=== PATIENT | female | born 1950 ===

== ENCOUNTER 2017-06-11 17:38 | Inpatient (IN) ==
[~2017-06-11 17:38] MED LIST: LORATADINE 10 MG TABLET PO PRN
[2017-06-11] MEDS ORDERED: HALOPERIDOL 5 MG/ML INJECTION IM PRN (18:32)
[2017-06-11] MEDS ORDERED: HALOPERIDOL 0.5 MG TABLET PO PRN (18:32)
[2017-06-11 19:47] VITALS: BMI 26.1
[2017-06-11] MEDS: LORazepam 0.5 MG TABLET PO PRN (20:38)
--- NOTE | 2017-06-11 21:19 | 24 Hour Neuropsychiatic Eval ---
Date of Admission: 06/11/17 17:38 Chief complaint: Confusion History of Present Illness: Patient is 66-year-old, , female who lives with at [facility] in [place] who has history of Major Neurocognitive disorder Alzheimer type. Patient was said to have been more delusional, paranoid and has also been agitated. She was said to have been agitated because she feels like has been having an affair. Patient reportedly attempted to escape several times and when family tried to stop her she began throwing things in the house. Family reportedly does not feel safe to have her around in the apartment due to agitation. Patient was seen to be alert and disoriented to time and place. She was seen to be confused and unable to state why she is in the hospital. Past Medical Hx: record indicates history of GERD Past Surgical History: Cholecystectomy Past Psychiatry history: Unable to obtain due to confusion Patient's strength; Patient has supportive family and she is able to assist in her own care Psychosis: Hallucinations/Illusions, Delusions, Disorganized behavior Dementia: Memory Impairment, Poor Executive Functioning PFSH GERD Family History: Unable to obtain - Social History Smoking status: Unknown if ever smoked Substance use type: does not use Current residence: [facility] Review of Systems - Constitutional Constitutional: Absent: headache(s) - EENMT Eyes: Absent: change in vision Ears: Absent: ear pain Mouth/Throat: Absent: changes in swallowing - Cardiovascular Cardiovascular: Absent: chest pain, orthopnea Rhythm: Present: regular rhythm - Respiratory Respiratory: Absent: cough, dyspnea on exertion - Gastrointestinal Gastrointestinal: Absent: dyspepsia - Genitourinary Genitourinary: Absent: dysuria - Musculoskeletal Musculoskeletal: Absent: neck pain - Neurological Neurological: Present: confusion. Absent: numbness - Psychiatric Psychiatric: Present: auditory hallucinations, difficulty concentrating, paranoia. Absent: suicidal ideation - Endocrine Endocrine: Absent: palpitations - Hematologic/Lymphatic Hematologic/Lymphatic: Absent: lymphadenopathy - Allergic/Immunologic Allergic/Immunologic: Absent: urticaria Mental Status Exam Vitals: Last Vital Signs Temp 96.6 F L 06/11/17 20:10 Pulse 58 L 06/11/17 20:10 Resp 18 06/11/17 20:10 BP 148/72 H 06/11/17 20:10 Pulse Ox 97 06/11/17 20:10 Height: 1.75 m Weight: 80.2 kg - Mental Status Exam Muscle Strength/Tone: Weak Dressing: Casual Grooming: Good Attitude: Cooperative Motor Activity: Agitation Eye Contact: Good Speech: Other (incoherent) Rhythm: Appropriate Rhythm Orientation: Disoriented to time, Disoriented to place, Oriented to person Mood: Neutral Affect: Anxious Rate of Thoughts: Appropriate Rate Thought Organization: Disorganized, Tangential, Confused Associations: Loose-associations, Illogical Abstract Reasoning: Impaired, concrete Computation: Poor Computation Thought Content: Delusions Perception/Psychotic: Psychotic Current Hallucinations: Auditory Language: Naming Impaired Fund of Knowledge: Poor fund of knowledge Memory: Poor-immediate, Poor-recent, Poor-remote Suicidal Ideation: None Homicidal Ideation: None Insight: Poor Judgement: Poor Impulse Control: Poor Assessment and Plan (1) Major neurocognitive disorder Problem details: with behavioral disturbance Current visit: Yes Status: Acute Admit to [facility] unit Consult medical team for medical management Re- start home medication Obtain Vit B12, Folate, TSH
[2017-06-12] MEDS ORDERED: CRANBERRY FRUIT 500 MG PO SCH (09:00)
[2017-06-12] MEDS ORDERED: BERBERINE PO SCH (09:00)
[2017-06-12] MEDS ORDERED: HOPS PO SCH (09:00)
[2017-06-12] MEDS ORDERED: VIT D3 VIT K PO SCH (09:00)
[2017-06-12] MEDS ORDERED: FLAXSEED OIL 1000 MG PO SCH (09:00)
[2017-06-12] MEDS: CALCIUM 600 + VIT D 400 TABLET PO SCH ×2 (09:17→20:12)
[2017-06-12] MEDS: FENOFIBRATE 145 MG TABLET PO SCH (09:18)
[2017-06-12] MEDS: VITAMIN E 400 UNIT CAPSULE PO SCH (09:18)
[2017-06-12] MEDS: LEVOTHYROXINE 112 MCG TABLET PO SCH (09:18)
[2017-06-12] MEDS: OMEPRAZOLE 20 MG CAPSULE PO SCH (09:18)
[2017-06-12] MEDS: MULTI-VITAMIN PLAIN TABLET PO SCH (09:18)
[2017-06-12] MEDS ORDERED: LORATADINE 10 MG TABLET PO PRN (09:30)
--- NOTE | 2017-06-12 09:38 | History & Physical Report ---
<Riddhi Mendoza V - Last Filed: 06/12/17 09:35> History of Present Illness Date: 06/12/17 Chief complaint: dementia with behaviors HPI: Patient is a 66-year-old female who resides at [facility] in [place]. She had been seen by her primary care provider, Dr. Jelani Perry on continued memory deficits. No changes were apparently made at that time. Over the last week. She has had increasing agitation, increased delusions. She had been accusing her of having an affair and attempting to elope from the home where she resides with her . She was evaluated at [facility] on 06/11 in the emergency room for medical clearance. Then she was she was accepted to the [facility] unit for ongoing psychiatric evaluation and treatment Khushbu is seen this morning for initial consultation. She is alert, and pleasant during exam. She denies having pain, shortness of breath or GI complaints. She is not a very good historian as she is unable to give any specifics about living situation or history. Review of Systems ROS unobtainable: due to mental status All systems: reviewed and no additional remarkable complaints except as stated Review of systems: Unable to obtain accurate ROS due to mentation PFSH History of CVA Dementia Hypertension GERD Hypercholesterolemia hypothyroidism. Obstructive sleep apnea Genital herpes Cervical herniated disc Urinary incontinence History of vitamin D deficiency History of intracranial bleed-2010 history of migraines. Surgical History: Cataract extraction. Cholecystectomy-1994. Sinus and nasal surgery-1989. Tubal ligation-1981 Family History: Mother-CVA and heart disease. Father and brother with leukemia. Sister with lupus - Social History Smoking status: Unknown if ever smoked Current residence: [facility] Living Social history: PCP Dr. Jelani Perry Medications Home Medications Medication Instructions Recorded Confirmed Type Calcium 600 + D [Caltrate + D] 600 mg PO BID 06/11/17 06/11/17 History Cranberry Fruit 500 mg PO DAILY 06/11/17 06/11/17 History Esomeprazole [NEXIUM 20 mg Capsule] 20 mg PO ACB 06/11/17 06/11/17 History Fenofibrate [Tricor] 1 tab PO WB 06/11/17 06/11/17 History Flaxseed Oil 1,000 mg PO DAILY 06/11/17 06/11/17 History Levothyroxine Sodium 112 mcg PO ACB 06/11/17 06/11/17 History Loratadine [Claritin] 10 mg PO PRN 06/11/17 06/11/17 History Multivitamin [Multivitamins] 1 each PO DAILY 06/11/17 06/11/17 History Pravachol 40 mg PO HS 06/11/17 06/11/17 History Vit D3-Vit K/Berberine/Hops 1,000 cap PO DAILY 06/11/17 06/11/17 History Vitamin E 400 mg PO DAILY 06/11/17 06/11/17 History Allergies Allergy/AdvReac Type Severity Reaction Status Date / Time atorvastatin Allergy Hives Verified 06/11/17 19:11 Penicillins Allergy Hives Verified 06/11/17 19:11 Sulfa (Sulfonamide Allergy Verified 06/11/17 19:11 Antibiotics) Exam Vital Signs: Temperature 97.2 F 06/12/17 09:00 Pulse Rate 75 06/12/17 09:00 Respiratory Rate 16 06/12/17 09:00 Blood Pressure 129/94 H 06/12/17 09:00 Pulse Oximetry 96 06/12/17 09:00 Oxygen Delivery Method Room Air Height: 1.75 m Weight: 80.2 kg Body Mass Index: 26.1 - Constitutional Present: no acute distress, well nourished, well developed - Routine HEENT Exam Head: Present: normocephalic, atraumatic Eye: Present: EOMI, PERRL ENT: Present: mucous membranes moist, dentition normal - Routine Neck Exam Present: supple, full ROM - Routine Respiratory Exam Present: CTA bilaterally. Absent: wheezes - Routine Cardiovascular Exam Present: RRR, S1, S2, no murmur. Absent: murmur - Routine Abdominal Exam Present: soft, normoactive bowel sounds, non distended. Absent: tenderness - Routine Extremities Exam Present: full ROM, normal capillary refill - Routine Back/Spine/Pelvis Exam Back/Spine: Present: full ROM - Routine Skin Exam Present: intact, dry, warm - Routine Neurological Exam Present: alert, CN II-XII intact, moving all extremities - Routine Psychiatric Exam Present: cooperative Assessment and Plan (1) Major neurocognitive disorder Problem details: with behavioral disturbance Current visit: Yes Status: Acute Resuscitation Status: Full Code Assessment and Plan: A/P Dementia with increase behaviors Hypertension Hypercholesterolemia neck and hypothyroidism. History of intracranial hemorrhage GERD Urinary incontinence-chronic History of CVA Plan Agree with admission to [facility] unit under the care of Dr. Edgar Medical clearance was preformed at [facility] yesterday 06/11 Will continue to monitor blood pressures. She does not appear to be on any anti- hypertensives Continue with other chronic medications including Tricor, Levothyroxine and routine vitamins Encourage patient to participate in unit activities and provide a safe environment The hospitalist services will follow patient and continue to medical managemet Mrs Ruby during her stay on [facility] unit At time of discharge medical care will return to PCP Dr Jelani Perry in [place]. Sepsis Assessment - Evaluation Sepsis screening result: No Definite Risk Hospital Course Summary Disclaimer: The visit summary below is not to be considered part of the above Progress Note. <Phuong Vallecillo - Last Filed: 06/12/17 21:07> History of Present Illness Date: 06/12/17 [facility] Patient Stated Medical History Alzheimer's Disease Yes Dementia Yes Hypertension Yes Other Respiratory Yes: Allergic Rhinitis Gastroesophageal Reflux Yes Disease Hx Incontinence Yes Hx Urinary Tract Infection Yes Exam Vital Signs: Temperature 96.7 F L 06/12/17 19:53 Pulse Rate 66 06/12/17 19:53 Respiratory Rate 16 06/12/17 19:53 Blood Pressure 125/78 06/12/17 19:53 Pulse Oximetry 94 06/12/17 19:53 Oxygen Delivery Method Room Air Height: 1.75 m Weight: 80.2 kg Assessment and Plan (1) Major neurocognitive disorder Problem details: with behavioral disturbance Current visit: Yes Status: Acute Assessment and Plan: I have independently evaluated and examined this patient. I reviewed the chart, the patient's history, and the TATTOO AND BODY ARTIST/PA's documented findings as above. We discussed and formulated the assessment and plan as above with additions as below: Mrs. Ruby was pleasant when seen and reported no concerns. Increased agitation/ psychosis noted per transfer records. The patient denies any acute symptoms currently. She currently lives in a group home facility in [place]. The patient was alert and cooperative when evaluated but is moderately confused and had word searching present. Respirations nonlabored with good airflow. Cardiac rhythm regular. Cranial nerves III through XII intact, motor tone normal, no tremor present. Sensation intact to light touch/cold upper and lower extremities, clinic director 4/5 bilaterally no overt drift although patient has difficulty following directions to evaluate, raise his legs off the floor independently and holds up against gentle resistance, plantar flexion 4/5 bilaterally. Laboratory data from [place] [facility] reviewed-white count 6.2, hemoglobin 14.1, platelet count 183K, and differential normal. Urinalysis unremarkable, electrolytes/liver enzymes normal, creatinine 0.66, TSH 3.53. Medically stable at present, underlying dementia with psychosis present. Plans as above. Hospital Course Summary Disclaimer: The visit summary below is not to be considered part of the above Progress Note.
[2017-06-12] MEDS: PRAVASTATIN 40 MG TABLET PO SCH (20:12)
[2017-06-12] MEDS: RisperiDONE 0.5 MG TABLET PO SCH (20:12)
--- NOTE | 2017-06-12 20:48 | Neuropsych Progress Note ---
[facility] Subjective Date: 06/12/17 - Sujective/Severity of Illness Medications: Calcium/Vitamin D (Caltrate + D) 1 tab PO BID [facility] Last Admin: 06/12/17 20:12 Dose: 1 tab Fenofibrate (Tricor) 145 mg PO WB [facility] Last Admin: 06/12/17 09:18 Dose: 145 mg Haloperidol (Haldol) 0.5 mg PO Q6H PRN PRN Reason: Extreme agitation Last Admin: 06/11/17 20:38 Dose: 0.5 mg Haloperidol Lactate (Haldol) 0.5 mg IM Q6H PRN PRN Reason: Extreme agitation Levothyroxine Sodium (Synthroid) 112 mcg PO ACB [facility] Last Admin: 06/12/17 09:18 Dose: 112 mcg Loratadine (Claritin) 10 mg PO ACB PRN Lorazepam (Ativan Inj) 0.5 mg IM Q6H PRN PRN Reason: Extreme agitation Lorazepam (Ativan) 0.5 mg PO Q6H PRN PRN Reason: Extreme agitation Last Admin: 06/11/17 20:38 Dose: 0.5 mg Multivitamins (Theragran) 1 tab PO DAILY [facility] Last Admin: 06/12/17 09:18 Dose: 1 tab Omeprazole (Prilosec) 20 mg PO ACB [facility] Last Admin: 06/12/17 09:18 Dose: 20 mg Pravastatin Sodium (Pravachol) 40 mg PO HS [facility] Last Admin: 06/12/17 20:12 Dose: 40 mg Risperidone (Risperdal) 0.5 mg PO 2100 [facility] Last Admin: 06/12/17 20:12 Dose: 0.5 mg Vitamin E (Vitamin E) 400 unit PO DAILY [facility] Last Admin: 06/12/17 09:18 Dose: 400 unit Subjective: History :Patient presented from an [facility] where she resides with her . She has history of Alzheimer dementia diagnosed several years ago. She was said to be agitated, delusional and paranoid. She was accusing her of having an affair. Today ,she was seen to be alert and oriented to person. She often engages in conversation and confabulates by been amiable. She has significant impaired memory, poor executive function, difficulty sustaining attention and gait instability. Staff reports that she often gets agitated on the evening and was attempting to leave the unit last night. She required PRN Haldol and Ativan at about 2009. Sleep: 9 hours appetite: good Medication compliance good: side effect: none identified Group activity: She is unable to meaningfully participate due to impaired cognition Start Time: 17:20 Stop Time: 17:40 Mental Status Exam Vitals: Last Vital Signs Temp 96.7 F L 06/12/17 19:53 Pulse 66 06/12/17 19:53 Resp 16 06/12/17 19:53 BP 125/78 06/12/17 19:53 Pulse Ox 94 06/12/17 19:53 Height: 1.75 m Weight: 80.2 kg - Mental Status Exam Muscle Strength/Tone: Weak Dressing: Casual Grooming: Good Attitude: Cooperative Motor Activity: Agitation (towards evening ) Eye Contact: Good Speech: Other (incoherent) Rhythm: Appropriate Rhythm Orientation: Disoriented to time, Disoriented to place, Oriented to person Mood: Neutral Affect: Bright Rate of Thoughts: Appropriate Rate Thought Organization: Disorganized, Tangential, Confused Associations: Loose-associations, Illogical Abstract Reasoning: Impaired, concrete Computation: Poor Computation Thought Content: Delusions Perception/Psychotic: Psychotic Current Hallucinations: Auditory Language: Naming Impaired Fund of Knowledge: Poor fund of knowledge Memory: Poor-immediate, Poor-recent, Poor-remote Suicidal Ideation: None Homicidal Ideation: None Insight: Poor Judgement: Poor Impulse Control: Poor Assessment and Plan (1) Major neurocognitive disorder Problem details: with behavioral disturbance Current visit: Yes Status: Acute Hospital Course Summary Disclaimer: The visit summary below is not to be considered part of the above Progress Note. Start Risperidone 0.5mg po q PM to target peak of psychotic behavioral disturbance.
[2017-06-13] MEDS: OMEPRAZOLE 20 MG CAPSULE PO SCH (09:46)
[2017-06-13] MEDS: VITAMIN E 400 UNIT CAPSULE PO SCH (09:47)
[2017-06-13] MEDS: FENOFIBRATE 145 MG TABLET PO SCH (09:47)
[2017-06-13] MEDS: MULTI-VITAMIN PLAIN TABLET PO SCH (09:47)
[2017-06-13] MEDS: LEVOTHYROXINE 112 MCG TABLET PO SCH (09:47)
[2017-06-13] MEDS: CALCIUM 600 + VIT D 400 TABLET PO SCH ×2 (09:47→20:16)
--- NOTE | 2017-06-13 19:10 | Neuropsych Progress Note ---
[facility] Subjective Date: 06/13/17 - Sujective/Severity of Illness Medications: Calcium/Vitamin D (Caltrate + D) 1 tab PO BID [facility] Last Admin: 06/13/17 09:47 Dose: 1 tab Fenofibrate (Tricor) 145 mg PO WB [facility] Last Admin: 06/13/17 09:47 Dose: 145 mg Haloperidol (Haldol) 0.5 mg PO Q6H PRN PRN Reason: Extreme agitation Last Admin: 06/11/17 20:38 Dose: 0.5 mg Haloperidol Lactate (Haldol) 0.5 mg IM Q6H PRN PRN Reason: Extreme agitation Levothyroxine Sodium (Synthroid) 112 mcg PO ACB [facility] Last Admin: 06/13/17 09:47 Dose: 112 mcg Loratadine (Claritin) 10 mg PO ACB PRN Lorazepam (Ativan Inj) 0.5 mg IM Q6H PRN PRN Reason: Extreme agitation Lorazepam (Ativan) 0.5 mg PO Q6H PRN PRN Reason: Extreme agitation Last Admin: 06/11/17 20:38 Dose: 0.5 mg Multivitamins (Theragran) 1 tab PO DAILY [facility] Last Admin: 06/13/17 09:47 Dose: 1 tab Omeprazole (Prilosec) 20 mg PO ACB [facility] Last Admin: 06/13/17 09:46 Dose: 20 mg Pravastatin Sodium (Pravachol) 40 mg PO HS [facility] Last Admin: 06/12/17 20:12 Dose: 40 mg Risperidone (Risperdal) 0.5 mg PO 2100 [facility] Last Admin: 06/12/17 20:12 Dose: 0.5 mg Vitamin E (Vitamin E) 400 unit PO DAILY [facility] Last Admin: 06/13/17 09:47 Dose: 400 unit Subjective: Pt seen and chart examined. Nursing reports pt is doing well. Pleasant but confused. Sleeping and eating well. No behaviors noted. On face to face the pt states she is doing well. She is only oriented to self but is very pleasant. She denies any pain and voices no concerns at this time. Tolerating meds Start Time: 18:15 Stop Time: 18:30 Mental Status Exam Vitals: Last Vital Signs Temp 96.7 F L 06/13/17 16:33 Pulse 62 06/13/17 16:33 Resp 18 06/13/17 16:33 BP 135/74 06/13/17 16:33 Pulse Ox 96 06/13/17 16:33 Height: 1.75 m Weight: 80.2 kg - Mental Status Exam Muscle Strength/Tone: Weak Dressing: Casual Grooming: Good Attitude: Cooperative Motor Activity: Normal Eye Contact: Good Speech: Other (incoherent) Rhythm: Appropriate Rhythm Orientation: Disoriented to time, Disoriented to place, Oriented to person Mood: Neutral Rate of Thoughts: Appropriate Rate Thought Organization: Disorganized, Tangential, Confused Associations: Loose-associations, Illogical Abstract Reasoning: Impaired, concrete Computation: Poor Computation Thought Content: Normal Perception/Psychotic: Hx psychosis, not current Current Hallucinations: Auditory Language: Naming Impaired Fund of Knowledge: Poor fund of knowledge Memory: Poor-immediate, Poor-recent, Poor-remote Suicidal Ideation: None Homicidal Ideation: None Insight: Poor Judgement: Poor Impulse Control: Poor Assessment and Plan (1) Major neurocognitive disorder Problem details: with behavioral disturbance Current visit: Yes Status: Acute Hospital Course Summary Disclaimer: The visit summary below is not to be considered part of the above Progress Note. Hospital Course: 06/13/17 19:10 Continue current care
[2017-06-13] MEDS: PRAVASTATIN 40 MG TABLET PO SCH ×2 (20:16→21:42)
[2017-06-13] MEDS: RisperiDONE 0.5 MG TABLET PO SCH (20:16)
[2017-06-14] MEDS: OMEPRAZOLE 20 MG CAPSULE PO SCH (06:09)
[2017-06-14] MEDS: LEVOTHYROXINE 112 MCG TABLET PO SCH (06:09)
[2017-06-14] MEDS: VITAMIN E 400 UNIT CAPSULE PO SCH (08:20)
[2017-06-14] MEDS: MULTI-VITAMIN PLAIN TABLET PO SCH (08:20)
[2017-06-14] MEDS: CALCIUM 600 + VIT D 400 TABLET PO SCH ×2 (08:20→19:47)
[2017-06-14] MEDS: FENOFIBRATE 145 MG TABLET PO SCH (08:20)
--- NOTE | 2017-06-14 10:12 | Progress Note ---
<Riddhi Mendoza Hui - Last Filed: 06/14/17 10:07> Subjective: Khushbu is seen this morning during breakfast. She is alert and pleasant while eating breakfast. She has no complains of pain or problems. Her appetite is good. She is voiding without difficulty however there is no bowel movements charted since admission. Objective Vital signs: Temperature 97.6 F 06/14/17 08:00 Pulse Rate 73 06/14/17 08:00 Respiratory Rate 18 06/14/17 08:00 Blood Pressure 131/94 H 06/14/17 08:00 Pulse Oximetry 97 06/14/17 08:00 Oxygen Delivery Method Room Air Body Mass Index: 26.1 - Constitutional Present: no acute distress, well nourished, well developed - Routine HEENT Exam Eye: Present: EOMI ENT: Present: mucous membranes moist, dentition normal - Routine Respiratory Exam Present: CTA bilaterally. Absent: wheezes - Routine Cardiovascular Exam Present: RRR, S1, S2, no murmur. Absent: murmur - Routine Abdominal Exam Present: soft, normoactive bowel sounds, non distended. Absent: tenderness - Routine Extremities Exam Present: no edema, full ROM - Routine Back/Spine/Pelvis Exam Back/Spine: Present: full ROM - Routine Skin Exam Present: intact, dry, warm - Routine Neurological Exam Present: alert, CN II-XII intact - Routine Lymphatic Exam Lymphatic: Absent: adenopathy - Routine Psychiatric Exam Present: cooperative Assessment and Plan (1) Major neurocognitive disorder Problem details: with behavioral disturbance Current visit: Yes Status: Acute Assessment and Plan: 06/14/17 She has not had a bowel movement since admission Talked with nursing staff about giving MiraLAX and milk of magnesia and now. Will continue when necessary. Otherwise, vital signs have been stable. Admission laboratory studies were reviewed and are unremarkable. Overall patient appears to be medically stable. Continue to encourage participate in unit activities and provide a safe environment. Sepsis Assessment - Evaluation Sepsis screening result: No Definite Risk Hospital Course Summary Disclaimer: The visit summary below is not to be considered part of the above Progress Note. Hospital Course: 06/13/17 19:10 Continue current care <Phuong Vallecillo - Last Filed: 06/14/17 20:46> Objective Vital signs: Temperature 96.8 F 07/28/17 19:23 Pulse Rate 72 06/14/17 19:23 Respiratory Rate 16 06/14/17 19:23 Blood Pressure 123/65 06/14/17 19:23 Pulse Oximetry 92 06/14/17 19:23 Oxygen Delivery Method Room Air Assessment and Plan (1) Major neurocognitive disorder Problem details: with behavioral disturbance Current visit: Yes Status: Acute Assessment and Plan: I have independently evaluated and examined this patient. I reviewed the chart, the patient's history, and the BAG CHECKER/PA's documented findings as above. We discussed and formulated the assessment and plan as above with additions as below: Patient reports no concerns later in the day. She denies past history of obstructive sleep apnea. Blood pressure stable, patient alert Respirations nonlabored Fluent speech Assessment: Dementia with increase behaviors Hypertension Hypercholesterolemia Hypothyroidism Constipation History of intracranial hemorrhage GERD Urinary incontinence-chronic History of CVA Hospital Course Summary Disclaimer: The visit summary below is not to be considered part of the above Progress Note.
[2017-06-14] MEDS: POLYETHYL GLYCOL 3350 17gm PACKET PO SCH (11:26)
--- NOTE | 2017-06-14 17:21 | Neuropsych Progress Note ---
Generations Subjective Date: 06/14/17 - Sujective/Severity of Illness Medications: Calcium/Vitamin D (Caltrate + D) 1 tab PO BID [facility] Last Admin: 06/14/17 08:20 Dose: 1 tab Fenofibrate (Tricor) 145 mg PO WB [facility] Last Admin: 06/14/17 08:20 Dose: 145 mg Haloperidol (Haldol) 0.5 mg PO Q6H PRN PRN Reason: Extreme agitation Last Admin: 06/11/17 20:38 Dose: 0.5 mg Haloperidol Lactate (Haldol) 0.5 mg IM Q6H PRN PRN Reason: Extreme agitation Levothyroxine Sodium (Synthroid) 112 mcg PO ACB [facility] Last Admin: 06/14/17 06:09 Dose: 112 mcg Loratadine (Claritin) 10 mg PO ACB PRN Lorazepam (Ativan Inj) 0.5 mg IM Q6H PRN PRN Reason: Extreme agitation Lorazepam (Ativan) 0.5 mg PO Q6H PRN PRN Reason: Extreme agitation Last Admin: 06/11/17 20:38 Dose: 0.5 mg Magnesium Hydroxide (Mom) 30 ml PO DAILY PRN PRN Reason: Constipation Last Admin: 06/14/17 11:26 Dose: 30 ml Multivitamins (Theragran) 1 tab PO DAILY [facility] Last Admin: 06/14/17 08:20 Dose: 1 tab Omeprazole (Prilosec) 20 mg PO ACB [facility] Last Admin: 06/14/17 06:09 Dose: 20 mg Polyethylene Glycol (Miralax) 17 gm PO DAILY [facility] Last Admin: 06/14/17 11:26 Dose: 17 gm Pravastatin Sodium (Pravachol) 40 mg PO HS [facility] Last Admin: 06/13/17 21:42 Dose: Not Given Risperidone (Risperdal) 0.5 mg PO 2100 [facility] Last Admin: 06/13/17 20:16 Dose: 0.5 mg Vitamin E (Vitamin E) 400 unit PO DAILY [facility] Last Admin: 06/14/17 08:20 Dose: 400 unit Subjective: Pt seen and chart examined. Nursing reports pt is doing well. Sleeping well and has a good appetite. No behaviors noted. On face to face the pt states she is doing well. She is pleasant but confused. Only oriented to self. Denies any pain Start Time: 16:30 Stop Time: 16:45 Mental Status Exam Vitals: Last Vital Signs Temp 97.5 F 06/14/17 16:00 Pulse 72 06/14/17 16:00 Resp 16 06/14/17 16:00 BP 119/72 06/14/17 16:00 Pulse Ox 94 06/14/17 16:00 Height: 1.75 m Weight: 80.2 kg - Mental Status Exam Muscle Strength/Tone: Weak Dressing: Casual Grooming: Good Attitude: Cooperative Motor Activity: Normal Eye Contact: Good Speech: Other (incoherent) Rhythm: Appropriate Rhythm Orientation: Disoriented to time, Disoriented to place, Oriented to person Mood: Neutral Rate of Thoughts: Appropriate Rate Thought Organization: Disorganized, Tangential, Confused Associations: Loose-associations, Illogical Abstract Reasoning: Impaired, concrete Computation: Poor Computation Thought Content: Normal Perception/Psychotic: Hx psychosis, not current Current Hallucinations: Auditory Language: Naming Impaired Fund of Knowledge: Poor fund of knowledge Memory: Poor-immediate, Poor-recent, Poor-remote Suicidal Ideation: None Homicidal Ideation: None Insight: Poor Judgement: Poor Impulse Control: Poor Assessment and Plan (1) Major neurocognitive disorder Problem details: with behavioral disturbance Current visit: Yes Status: Acute Hospital Course Summary Disclaimer: The visit summary below is not to be considered part of the above Progress Note. Hospital Course: 06/13/17 19:10 Continue current care 06/14/17 17:20 Continue current care
[2017-06-14] MEDS: PRAVASTATIN 40 MG TABLET PO SCH (19:47)
[2017-06-14] MEDS: RisperiDONE 0.5 MG TABLET PO SCH (19:47)
[2017-06-15] MEDS: LORazepam 0.5 MG TABLET PO PRN (00:25)
[2017-06-15] MEDS: OMEPRAZOLE 20 MG CAPSULE PO SCH (07:46)
[2017-06-15] MEDS: LEVOTHYROXINE 112 MCG TABLET PO SCH (07:46)
[2017-06-15] MEDS: POLYETHYL GLYCOL 3350 17gm PACKET PO SCH (08:08)
[2017-06-15] MEDS: CALCIUM 600 + VIT D 400 TABLET PO SCH ×2 (08:08→20:03)
[2017-06-15] MEDS: MULTI-VITAMIN PLAIN TABLET PO SCH (08:08)
[2017-06-15] MEDS: FENOFIBRATE 145 MG TABLET PO SCH (08:08)
[2017-06-15] MEDS: VITAMIN E 400 UNIT CAPSULE PO SCH (08:08)
--- NOTE | 2017-06-15 11:13 | Neuropsych Progress Note ---
Generations Subjective Date: 06/15/17 - Sujective/Severity of Illness Medications: Calcium/Vitamin D (Caltrate + D) 1 tab PO BID [facility] Last Admin: 06/15/17 08:08 Dose: 1 tab Fenofibrate (Tricor) 145 mg PO WB [facility] Last Admin: 06/15/17 08:08 Dose: 145 mg Haloperidol (Haldol) 0.5 mg PO Q6H PRN PRN Reason: Extreme agitation Last Admin: 06/11/17 20:38 Dose: 0.5 mg Haloperidol Lactate (Haldol) 0.5 mg IM Q6H PRN PRN Reason: Extreme agitation Levothyroxine Sodium (Synthroid) 112 mcg PO ACB [facility] Last Admin: 06/15/17 07:46 Dose: 112 mcg Loratadine (Claritin) 10 mg PO ACB PRN Lorazepam (Ativan Inj) 0.5 mg IM Q6H PRN PRN Reason: Extreme agitation Lorazepam (Ativan) 0.5 mg PO Q6H PRN PRN Reason: Extreme agitation Last Admin: 06/15/17 00:25 Dose: 0.5 mg Magnesium Hydroxide (Mom) 30 ml PO DAILY PRN PRN Reason: Constipation Last Admin: 06/14/17 11:26 Dose: 30 ml Multivitamins (Theragran) 1 tab PO DAILY [facility] Last Admin: 06/15/17 08:08 Dose: 1 tab Omeprazole (Prilosec) 20 mg PO ACB [facility] Last Admin: 06/15/17 07:46 Dose: 20 mg Polyethylene Glycol (Miralax) 17 gm PO DAILY [facility] Last Admin: 06/15/17 08:08 Dose: 17 gm Pravastatin Sodium (Pravachol) 40 mg PO HS [facility] Last Admin: 06/14/17 19:47 Dose: 40 mg Risperidone (Risperdal) 0.5 mg PO 2100 [facility] Last Admin: 06/14/17 19:47 Dose: 0.5 mg Vitamin E (Vitamin E) 400 unit PO DAILY [facility] Last Admin: 06/15/17 08:08 Dose: 400 unit Subjective: Pt seen and chart examined. Nursing reports pt did not sleep well last night. Was slightly upset after left but was redirectable. Today pt is doing well. On face to face the pt is pleasant but confused. She is only oriented to self. She is pleasant and voices no concerns. Tolerating meds Start Time: 10:30 Stop Time: 10:45 Mental Status Exam Vitals: Last Vital Signs Temp 97.1 F 06/15/17 07:45 Pulse 78 06/15/17 07:45 Resp 14 06/15/17 07:45 BP 137/78 06/15/17 07:45 Pulse Ox 95 06/15/17 07:45 Height: 1.75 m Weight: 80.2 kg - Mental Status Exam Muscle Strength/Tone: Weak Dressing: Casual Grooming: Good Attitude: Cooperative Motor Activity: Normal Eye Contact: Good Speech: Other (incoherent) Rhythm: Appropriate Rhythm Orientation: Disoriented to time, Disoriented to place, Oriented to person Mood: Neutral Rate of Thoughts: Appropriate Rate Thought Organization: Disorganized, Tangential, Confused Associations: Loose-associations, Illogical Abstract Reasoning: Impaired, concrete Computation: Poor Computation Thought Content: Normal Perception/Psychotic: Hx psychosis, not current Current Hallucinations: Auditory Language: Naming Impaired Fund of Knowledge: Poor fund of knowledge Memory: Poor-immediate, Poor-recent, Poor-remote Suicidal Ideation: None Homicidal Ideation: None Insight: Poor Judgement: Poor Impulse Control: Poor Assessment and Plan (1) Major neurocognitive disorder Problem details: with behavioral disturbance Current visit: Yes Status: Acute Hospital Course Summary Disclaimer: The visit summary below is not to be considered part of the above Progress Note. Hospital Course: 06/13/17 19:10 Continue current care 06/14/17 17:20 Continue current care 06/15/17 11:13 Continue current care
[2017-06-15] MEDS: PRAVASTATIN 40 MG TABLET PO SCH (20:03)
[2017-06-15] MEDS: RisperiDONE 0.5 MG TABLET PO SCH (20:03)
[2017-06-16] MEDS: LEVOTHYROXINE 112 MCG TABLET PO SCH (09:44)
[2017-06-16] MEDS: MULTI-VITAMIN PLAIN TABLET PO SCH (09:44)
[2017-06-16] MEDS: VITAMIN E 400 UNIT CAPSULE PO SCH (09:45)
[2017-06-16] MEDS: POLYETHYL GLYCOL 3350 17gm PACKET PO SCH (09:45)
[2017-06-16] MEDS: CALCIUM 600 + VIT D 400 TABLET PO SCH ×2 (09:45→20:11)
[2017-06-16] MEDS: FENOFIBRATE 145 MG TABLET PO SCH (09:45)
[2017-06-16] MEDS: OMEPRAZOLE 20 MG CAPSULE PO SCH (09:45)
--- NOTE | 2017-06-16 11:21 | Neuropsych Progress Note ---
Generations Subjective Date: 06/16/17 - Sujective/Severity of Illness Medications: Calcium/Vitamin D (Caltrate + D) 1 tab PO BID [facility] Last Admin: 06/16/17 09:45 Dose: 1 tab Fenofibrate (Tricor) 145 mg PO WB [facility] Last Admin: 06/16/17 09:45 Dose: 145 mg Haloperidol (Haldol) 0.5 mg PO Q6H PRN PRN Reason: Extreme agitation Last Admin: 06/11/17 20:38 Dose: 0.5 mg Haloperidol Lactate (Haldol) 0.5 mg IM Q6H PRN PRN Reason: Extreme agitation Levothyroxine Sodium (Synthroid) 112 mcg PO ACB [facility] Last Admin: 06/16/17 09:44 Dose: 112 mcg Loratadine (Claritin) 10 mg PO ACB PRN Lorazepam (Ativan Inj) 0.5 mg IM Q6H PRN PRN Reason: Extreme agitation Lorazepam (Ativan) 0.5 mg PO Q6H PRN PRN Reason: Extreme agitation Last Admin: 06/15/17 00:25 Dose: 0.5 mg Magnesium Hydroxide (Mom) 30 ml PO DAILY PRN PRN Reason: Constipation Last Admin: 06/14/17 11:26 Dose: 30 ml Multivitamins (Theragran) 1 tab PO DAILY [facility] Last Admin: 06/16/17 09:44 Dose: 1 tab Omeprazole (Prilosec) 20 mg PO ACB [facility] Last Admin: 06/16/17 09:45 Dose: 20 mg Polyethylene Glycol (Miralax) 17 gm PO DAILY [facility] Last Admin: 06/16/17 09:45 Dose: 17 gm Pravastatin Sodium (Pravachol) 40 mg PO HS [facility] Last Admin: 06/15/17 20:03 Dose: 40 mg Risperidone (Risperdal) 0.5 mg PO 2100 [facility] Last Admin: 06/15/17 20:03 Dose: 0.5 mg Vitamin E (Vitamin E) 400 unit PO DAILY [facility] Last Admin: 06/16/17 09:45 Dose: 400 unit Subjective: Pt seen and chart examined. Nursing reports pt was seeing water last night in her room but it did not seem to concern her. Slept better. No behaviors noted. On face to face the pt is pleasant but confused. She is only oriented to self. Denies any pain. Tolerating meds Start Time: 10:15 Stop Time: 10:30 Mental Status Exam Vitals: Last Vital Signs Temp 97.6 F 06/16/17 07:00 Pulse 86 06/16/17 07:00 Resp 16 06/16/17 07:00 BP 116/86 06/16/17 07:00 Pulse Ox 95 06/16/17 07:00 Height: 1.75 m Weight: 80.2 kg - Mental Status Exam Muscle Strength/Tone: Weak Dressing: Casual Grooming: Good Attitude: Cooperative Motor Activity: Normal Eye Contact: Good Speech: Other (incoherent) Rhythm: Appropriate Rhythm Orientation: Disoriented to time, Disoriented to place, Oriented to person Mood: Neutral Rate of Thoughts: Appropriate Rate Thought Organization: Disorganized, Tangential, Confused Associations: Loose-associations, Illogical Abstract Reasoning: Impaired, concrete Computation: Poor Computation Thought Content: Normal Perception/Psychotic: Hx psychosis, not current Current Hallucinations: Auditory Language: Naming Impaired Fund of Knowledge: Poor fund of knowledge Memory: Poor-immediate, Poor-recent, Poor-remote Suicidal Ideation: None Homicidal Ideation: None Insight: Poor Judgement: Poor Impulse Control: Poor Assessment and Plan (1) Major neurocognitive disorder Problem details: with behavioral disturbance Current visit: Yes Status: Acute Hospital Course Summary Disclaimer: The visit summary below is not to be considered part of the above Progress Note. Hospital Course: 06/13/17 19:10 Continue current care 06/14/17 17:20 Continue current care 06/15/17 11:13 Continue current care 06/16/17 11:21 Continue current care
[2017-06-16] MEDS: PRAVASTATIN 40 MG TABLET PO SCH ×2 (20:11→22:46)
[2017-06-16] MEDS: RisperiDONE 0.5 MG TABLET PO SCH (20:11)
[2017-06-16] MEDS: LORazepam 0.5 MG TABLET PO PRN (21:27)
[2017-06-17] MEDS: LEVOTHYROXINE 112 MCG TABLET PO SCH (06:41)
[2017-06-17] MEDS: OMEPRAZOLE 20 MG CAPSULE PO SCH (06:41)
[2017-06-17] MEDS: POLYETHYL GLYCOL 3350 17gm PACKET PO SCH (08:18)
[2017-06-17] MEDS: CALCIUM 600 + VIT D 400 TABLET PO SCH ×2 (08:19→19:55)
[2017-06-17] MEDS: VITAMIN E 400 UNIT CAPSULE PO SCH (08:19)
[2017-06-17] MEDS: MULTI-VITAMIN PLAIN TABLET PO SCH (08:19)
[2017-06-17] MEDS: FENOFIBRATE 145 MG TABLET PO SCH (08:19)
--- NOTE | 2017-06-17 08:38 | Discharge Instructions ---
Discharge Plan - Med Rec/Dispo Referrals/Follow Up: Flo Perry MD [Other] (Dr. Henrique Perry on 06/27/17 at 9:00 am for Hosp. follow-up. Check-in at 8:45 am. [facility] [address] [id number] , [place] declines Mental Health follow-up at this time. PCP will manage meds.) Additional Instructions: Reasons for Admission: Discharge Diagnosis: IN CASE OF PSYCHIATRIC EMERGENCY, CONTACT [facility] AT [phone] ( available 24 hrs daily). Prescriptions: New PEG 3350 17gm PACKET [Miralax] 17 gm PO DAILY packet Continue Calcium 600 + D [Caltrate + D] 600 mg PO BID Loratadine [Claritin] 10 mg PO PRN Vitamin E 400 mg PO DAILY Pravachol 40 mg PO HS Levothyroxine Sodium 112 mcg PO ACB Fenofibrate [Tricor] 1 tab PO WB Cranberry Fruit 500 mg PO DAILY Vit D3-Vit K/Berberine/Hops 1,000 cap PO DAILY Multivitamin [Multivitamins] 1 each PO DAILY Flaxseed Oil 1,000 mg PO DAILY Esomeprazole [NEXIUM 20 mg Capsule] 20 mg PO ACB
[2017-06-17] MEDS ORDERED: RisperiDONE 0.5 MG TABLET PO SCH (18:00)
--- NOTE | 2017-06-17 18:55 | Neuropsych Progress Note ---
Generations Subjective Date: 06/17/17 - Sujective/Severity of Illness Medications: Calcium/Vitamin D (Caltrate + D) 1 tab PO BID [facility] Last Admin: 06/17/17 08:19 Dose: 1 tab Fenofibrate (Tricor) 145 mg PO WB [facility] Last Admin: 06/17/17 08:19 Dose: 145 mg Haloperidol (Haldol) 0.5 mg PO Q6H PRN PRN Reason: Extreme agitation Last Admin: 06/11/17 20:38 Dose: 0.5 mg Haloperidol Lactate (Haldol) 0.5 mg IM Q6H PRN PRN Reason: Extreme agitation Levothyroxine Sodium (Synthroid) 112 mcg PO ACB [facility] Last Admin: 06/17/17 06:41 Dose: 112 mcg Loratadine (Claritin) 10 mg PO ACB PRN Lorazepam (Ativan Inj) 0.5 mg IM Q6H PRN PRN Reason: Extreme agitation Lorazepam (Ativan) 0.5 mg PO Q6H PRN PRN Reason: Extreme agitation Last Admin: 06/16/17 21:27 Dose: 0.5 mg Magnesium Hydroxide (Mom) 30 ml PO DAILY PRN PRN Reason: Constipation Last Admin: 06/14/17 11:26 Dose: 30 ml Multivitamins (Theragran) 1 tab PO DAILY [facility] Last Admin: 06/17/17 08:19 Dose: 1 tab Omeprazole (Prilosec) 20 mg PO ACB [facility] Last Admin: 06/17/17 06:41 Dose: 20 mg Polyethylene Glycol (Miralax) 17 gm PO DAILY [facility] Last Admin: 06/17/17 08:18 Dose: 17 gm Pravastatin Sodium (Pravachol) 40 mg PO 2100 [facility] Risperidone (Risperdal) 1 mg PO 1800 [facility] Last Admin: 06/17/17 18:28 Dose: 1 mg Vitamin E (Vitamin E) 400 unit PO DAILY [facility] Last Admin: 06/17/17 08:19 Dose: 400 unit Subjective: Pt seen and chart examined. Nursing reports pt doing well. Continues to have some VH and some confusion at night. On face to face the pt is pleasant but confused. She is only oriented to self. She denies any pain. Tolerating meds Start Time: 18:15 Stop Time: 18:30 Mental Status Exam Vitals: Last Vital Signs Temp 96.8 F 06/17/17 16:17 Pulse 69 06/17/17 16:17 Resp 16 06/17/17 16:17 BP 128/69 06/17/17 16:17 Pulse Ox 96 06/17/17 16:17 Height: 1.75 m Weight: 80.2 kg - Mental Status Exam Muscle Strength/Tone: Weak Dressing: Casual Grooming: Good Attitude: Cooperative Motor Activity: Normal Eye Contact: Good Speech: Other (incoherent) Rhythm: Appropriate Rhythm Orientation: Disoriented to time, Disoriented to place, Oriented to person Mood: Neutral Rate of Thoughts: Appropriate Rate Thought Organization: Disorganized, Tangential, Confused Associations: Loose-associations, Illogical Abstract Reasoning: Impaired, concrete Computation: Poor Computation Thought Content: Normal Perception/Psychotic: Hx psychosis, not current Current Hallucinations: Auditory Language: Naming Impaired Fund of Knowledge: Poor fund of knowledge Memory: Poor-immediate, Poor-recent, Poor-remote Suicidal Ideation: None Homicidal Ideation: None Insight: Poor Judgement: Poor Impulse Control: Poor Assessment and Plan (1) Major neurocognitive disorder Problem details: with behavioral disturbance Current visit: Yes Status: Acute Hospital Course Summary Disclaimer: The visit summary below is not to be considered part of the above Progress Note. Hospital Course: 06/13/17 19:10 Continue current care 06/14/17 17:20 Continue current care 06/15/17 11:13 Continue current care 06/16/17 11:21 Continue current care 06/17/17 18:54 Increase Risperdal to 1mg PO at 1800
[2017-06-17] MEDS: PRAVASTATIN 40 MG TABLET PO SCH (19:54)
[2017-06-18] MEDS: CALCIUM 600 + VIT D 400 TABLET PO SCH ×3 (05:24→20:07)
[2017-06-18] MEDS: PRAVASTATIN 40 MG TABLET PO SCH ×2 (05:24→20:07)
[2017-06-18] MEDS: LEVOTHYROXINE 112 MCG TABLET PO SCH (06:30)
[2017-06-18] MEDS: OMEPRAZOLE 20 MG CAPSULE PO SCH (06:30)
[2017-06-18] MEDS: VITAMIN E 400 UNIT CAPSULE PO SCH (08:23)
[2017-06-18] MEDS: MULTI-VITAMIN PLAIN TABLET PO SCH (08:23)
[2017-06-18] MEDS: POLYETHYL GLYCOL 3350 17gm PACKET PO SCH (08:23)
[2017-06-18] MEDS: FENOFIBRATE 145 MG TABLET PO SCH (08:23)
[2017-06-18 16:12] VITALS: RESP 16
--- NOTE | 2017-06-18 17:18 | Neuropsych Progress Note ---
Generations Subjective Date: 06/18/17 - Sujective/Severity of Illness Medications: Calcium/Vitamin D (Caltrate + D) 1 tab PO BID [facility] Last Admin: 06/18/17 08:23 Dose: 1 tab Fenofibrate (Tricor) 145 mg PO WB [facility] Last Admin: 06/18/17 08:23 Dose: 145 mg Haloperidol (Haldol) 0.5 mg PO Q6H PRN PRN Reason: Extreme agitation Last Admin: 06/11/17 20:38 Dose: 0.5 mg Haloperidol Lactate (Haldol) 0.5 mg IM Q6H PRN PRN Reason: Extreme agitation Levothyroxine Sodium (Synthroid) 112 mcg PO ACB [facility] Last Admin: 06/18/17 06:30 Dose: 112 mcg Loratadine (Claritin) 10 mg PO ACB PRN Lorazepam (Ativan Inj) 0.5 mg IM Q6H PRN PRN Reason: Extreme agitation Lorazepam (Ativan) 0.5 mg PO Q6H PRN PRN Reason: Extreme agitation Last Admin: 06/16/17 21:27 Dose: 0.5 mg Magnesium Hydroxide (Mom) 30 ml PO DAILY PRN PRN Reason: Constipation Last Admin: 06/14/17 11:26 Dose: 30 ml Multivitamins (Theragran) 1 tab PO DAILY [facility] Last Admin: 06/18/17 08:23 Dose: 1 tab Omeprazole (Prilosec) 20 mg PO ACB [facility] Last Admin: 06/18/17 06:30 Dose: 20 mg Polyethylene Glycol (Miralax) 17 gm PO DAILY [facility] Last Admin: 06/18/17 08:23 Dose: 17 gm Pravastatin Sodium (Pravachol) 40 mg PO 2100 [facility] Last Admin: 06/18/17 05:24 Dose: Not Given Risperidone (Risperdal) 1 mg PO 1800 [facility] Vitamin E (Vitamin E) 400 unit PO DAILY [facility] Last Admin: 06/18/17 08:23 Dose: 400 unit Subjective: Pt seen and chart examined. Nursing reports pt is doing well. Sleeping well and has a good appetite. No behaviors noted. On face to face the pt states she is doing well. She is pleasant but confused. She is only oriented to self. She denies any pain. Tolerating meds Start Time: 16:15 Stop Time: 16:30 Mental Status Exam Vitals: Last Vital Signs Temp 97.6 F 06/18/17 16:00 Pulse 72 06/18/17 16:00 Resp 16 06/18/17 16:00 BP 97/66 06/18/17 16:00 Pulse Ox 97 06/18/17 16:00 Height: 1.75 m Weight: 80.2 kg - Mental Status Exam Muscle Strength/Tone: Weak Dressing: Casual Grooming: Good Attitude: Cooperative Motor Activity: Normal Eye Contact: Good Speech: Other (incoherent) Rhythm: Appropriate Rhythm Orientation: Disoriented to time, Disoriented to place, Oriented to person Mood: Neutral Rate of Thoughts: Appropriate Rate Thought Organization: Disorganized, Tangential, Confused Associations: Loose-associations, Illogical Abstract Reasoning: Impaired, concrete Computation: Poor Computation Thought Content: Normal Perception/Psychotic: Hx psychosis, not current Current Hallucinations: Auditory Language: Naming Impaired Fund of Knowledge: Poor fund of knowledge Memory: Poor-immediate, Poor-recent, Poor-remote Suicidal Ideation: None Homicidal Ideation: None Insight: Poor Judgement: Poor Impulse Control: Poor - Laboratory Laboratory Results - last 24 hr 06/18/17 07:06 Hemoglobin A1c 5.3 L Assessment and Plan (1) Major neurocognitive disorder Problem details: with behavioral disturbance Current visit: Yes Status: Acute Hospital Course Summary Disclaimer: The visit summary below is not to be considered part of the above Progress Note. Hospital Course: 06/13/17 19:10 Continue current care 06/14/17 17:20 Continue current care 06/15/17 11:13 Continue current care 06/16/17 11:21 Continue current care 06/17/17 18:54 Increase Risperdal to 1mg PO at 1800 06/18/17 17:17 Plan D/C tomorrow
[2017-06-18] MEDS ORDERED: RisperiDONE 1 MG TABLET PO SCH (18:00)
[2017-06-19] MEDS: LEVOTHYROXINE 112 MCG TABLET PO SCH (05:35)
[2017-06-19] MEDS: OMEPRAZOLE 20 MG CAPSULE PO SCH (05:35)
[2017-06-19] MEDS: POLYETHYL GLYCOL 3350 17gm PACKET PO SCH (08:41)
[2017-06-19] MEDS: VITAMIN E 400 UNIT CAPSULE PO SCH (08:41)
[2017-06-19] MEDS: FENOFIBRATE 145 MG TABLET PO SCH (08:41)
[2017-06-19] MEDS: CALCIUM 600 + VIT D 400 TABLET PO SCH (08:41)
[2017-06-19] MEDS: MULTI-VITAMIN PLAIN TABLET PO SCH (08:41)
[2017-06-19 09:11] VITALS: BP 98/68; PULSE 90; TEMP 96.9; O2SAT 97
--- NOTE | 2017-06-19 10:17 | Discharge Instructions ---
Discharge Plan - Med Rec/Dispo Referrals/Follow Up: Flo Perry MD [Other] (Dr. Henrique Perry on 06/27/17 at 9:00 am for Hosp. follow-up. Check-in at 8:45 am. [facility] [address] [id number] , [place] declines Mental Health follow-up at this time. PCP will manage meds.) Additional Instructions: Reasons for Admission:Major neurocognitive Disorder with Behavioral Disturbance Discharge Diagnosis:Major neurocognitive Disorder with Behavioral Disturbance IN CASE OF PSYCHIATRIC EMERGENCY, CONTACT GENERATIONS STAFF AT [phone] ( available 24 hrs daily). Prescriptions: New PEG 3350 17gm PACKET [Miralax] 17 gm PO DAILY packet LORazepam [Ativan] 0.5 mg PO Q6H PRN #120 tablet PRN Reason: Extreme Agitation RisperiDONE [RisperDAL] 1 mg PO 1800 #30 tablet Continue Calcium 600 + D [Caltrate + D] 600 mg PO BID Loratadine [Claritin] 10 mg PO PRN Vitamin E 400 mg PO DAILY Pravachol 40 mg PO HS Levothyroxine Sodium 112 mcg PO ACB Fenofibrate [Tricor] 1 tab PO WB Cranberry Fruit 500 mg PO DAILY Vit D3-Vit K/Berberine/Hops 1,000 cap PO DAILY Multivitamin [Multivitamins] 1 each PO DAILY Flaxseed Oil 1,000 mg PO DAILY Esomeprazole [NEXIUM 20 mg Capsule] 20 mg PO ACB Discharge Instructions/Outpatient Orders: Final Provider Discharge Instructions Location: Determined By Patient - Disposition 01 Discharged Home, Self-Care
--- NOTE | 2017-06-19 11:40 | Discharge Instructions ---
Discharge Plan - Med Rec/Dispo Referrals/Follow Up: Flo Perry MD [Other] (Dr. Henrique Perry on 06/27/17 at 9:00 am for Hosp. follow-up. Check-in at 8:45 am. [facility] [address] [id number] , JUDITH declines Mental Health follow-up at this time. PCP will manage meds.) Additional Instructions: Reasons for Admission:Major neurocognitive Disorder with Behavioral Disturbance Discharge Diagnosis:Major neurocognitive Disorder with Behavioral Disturbance Pt will require Assisted Living Services at discharge due to safety concerns IN CASE OF PSYCHIATRIC EMERGENCY, CONTACT [facility] STAFF AT [phone] ( available 24 hrs daily). Prescriptions: New PEG 3350 17gm PACKET [Miralax] 17 gm PO DAILY packet LORazepam [Ativan] 0.5 mg PO Q6H PRN #120 tablet PRN Reason: Extreme Agitation RisperiDONE [RisperDAL] 1 mg PO 1800 #30 tablet Continue Calcium 600 + D [Caltrate + D] 600 mg PO BID Loratadine [Claritin] 10 mg PO PRN Vitamin E 400 mg PO DAILY Pravachol 40 mg PO HS Levothyroxine Sodium 112 mcg PO ACB Fenofibrate [Tricor] 1 tab PO WB Cranberry Fruit 500 mg PO DAILY Vit D3-Vit K/Berberine/Hops 1,000 cap PO DAILY Multivitamin [Multivitamins] 1 each PO DAILY Flaxseed Oil 1,000 mg PO DAILY Esomeprazole [NEXIUM 20 mg Capsule] 20 mg PO ACB Discharge Instructions/Outpatient Orders: Final Provider Discharge Instructions Location: Determined By Patient
--- NOTE | 2017-06-30 13:47 | Neuropsychiatric Disch Summary ---
Discharge Information Date of admission: 06/11/17 17:38 Attending Physician: Chris Edgar MD Consults: 06/11/17 18:32 Case Management Consult [CONS] Routine Reason For Exam: H&P and Medical Managment Physician Consult [CONS] Routine Consulting Provider: Fausto Bautista Reason For Exam: H&P and Medical Managment Ordering Provider has Notified [employer]per: Yes - Discharge Diagnosis Discharge Diagnosis: Major neurocognitive Disorder with behavioral disturbance Date of Admission: 06/11/17 17:38 History of Present Illness: Patient is 66-year-old, , female who lives with at [facility] in [place] who has history of Major Neurocognitive disorder Alzheimer type. Patient was said to have been more delusional, paranoid and has also been agitated. She was said to have been agitated because she feels like has been having an affair. Patient reportedly attempted to escape several times and when family tried to stop her she began throwing things in the house. Family reportedly does not feel safe to have her around in the apartment due to agitation. Patient was seen to be alert and disoriented to time and place. She was seen to be confused and unable to state why she is in the hospital. Past Medical Hx: record indicates history of GERD Past Surgical History: Cholecystectomy Past Psychiatry history: Unable to obtain due to confusion Patient's strength; Patient has supportive family and she is able to assist in her own care Hospital Course This is a general summary of the patient's hospital course. For more details refer to the complete medical record. Hospital course: 06/13/17 19:10 Continue current care 06/14/17 17:20 Continue current care 06/15/17 11:13 Continue current care 06/16/17 11:21 Continue current care 06/17/17 18:54 Increase Risperdal to 1mg PO at 1800 06/18/17 17:17 Plan D/C tomorrow Time spent with patient: 25 - 35 minutes Discharge Plan - Med Rec/Dispo Referrals/Follow Up: Flo Perry MD [Other] (Dr. Henrique Perry on 06/27/17 at 9:00 am for Hosp. follow-up. Check-in at 8:45 am. [facility] [address] [place] [address] , DPOA declines Mental Health follow-up at this time. PCP will manage meds.) Additional Instructions: Reasons for Admission:Major neurocognitive Disorder with Behavioral Disturbance Discharge Diagnosis:Major neurocognitive Disorder with Behavioral Disturbance Pt will require Assisted Living Services at discharge due to safety concerns IN CASE OF PSYCHIATRIC EMERGENCY, CONTACT GENERATIONS STAFF AT [phone] ( available 24 hrs daily). Prescriptions: New PEG 3350 17gm PACKET [Miralax] 17 gm PO DAILY packet LORazepam [Ativan] 0.5 mg PO Q6H PRN #120 tablet PRN Reason: Extreme Agitation RisperiDONE [RisperDAL] 1 mg PO 1800 #30 tablet Continue Calcium 600 + D [Caltrate + D] 600 mg PO BID Loratadine [Claritin] 10 mg PO PRN Vitamin E 400 mg PO DAILY Pravachol 40 mg PO HS Levothyroxine Sodium 112 mcg PO ACB Fenofibrate [Tricor] 1 tab PO WB Cranberry Fruit 500 mg PO DAILY Vit D3-Vit K/Berberine/Hops 1,000 cap PO DAILY Multivitamin [Multivitamins] 1 each PO DAILY Flaxseed Oil 1,000 mg PO DAILY Esomeprazole [NEXIUM 20 mg Capsule] 20 mg PO ACB Discharge Instructions/Outpatient Orders: Final Provider Discharge Instructions Location: Determined By Patient - Disposition 01 Discharged Home, Self-Care
== END 2017-06-19 13:45 | disposition home or self-care (01) | DRG 57 ==
LOC: GEN 17:38
PROVIDERS: ADMIT Psychiatry & Neurology Psychiatry; ATTEND Psychiatry & Neurology Psychiatry